=== PATIENT | female | born 1985 | race African-American/Black ===

== ENCOUNTER 2018-09-03 11:58 | Emergency (ER) | payer OTHER ==
[~2018-09-03] VITALS: Ht 165.1 cm; Wt 60.0 kg
[2018-09-03 12:01] VITALS: BP 146/87
[2018-09-03] MEDS ORDERED: KETOROLAC 60MG/2ML VIAL IM ONE (12:30)
[2018-09-03] MEDS ORDERED: DIAZEPAM 5 MG TABLET PO ONE ×2 (12:30→12:45)
[2018-09-03] MEDS ORDERED: IBUPROFEN 600MG TABLET PO ONE (12:45)
== END 2018-09-03 14:03 | disposition home or self-care (01) ==
LOC: ER 12:33
DX: M43.6 Torticollis (principal); I10 Essential (primary) hypertension
CPT/HCPCS: 81025; 99283